=== PATIENT | female | born 1945 | race Caucasian/White ===

== ENCOUNTER → 2024-01-25 13:47 | Outpatient (REF) | payer MEDICARE, SELFPAY | LOC: WDC 13:47 | DX: Z12.31 Encounter for screening mammogram for malignant neoplasm of breast (principal) | CPT/HCPCS: 77063; 77067 ==

== ENCOUNTER → 2024-07-18 08:54 | Outpatient (REF) | payer MEDICARE, SELFPAY | LOC: RAD 08:54 | PROVIDERS: ATTENDING PHYSICIAN Internal Medicine Endocrinology, Diabetes & Metabolism; FAMILY PHYSICIAN Internal Medicine | DX: E21.0 Primary hyperparathyroidism (principal) | CPT/HCPCS: 76536; 78071; A9500 ==

== ENCOUNTER → 2024-08-26 11:27 | Outpatient (REF) | payer MEDICARE, SELFPAY | LOC: RAD 11:27 | PROVIDERS: ATTENDING PHYSICIAN Student in an Organized Health Care Education/Training Program; FAMILY PHYSICIAN Internal Medicine | DX: E07.9 Disorder of thyroid, unspecified (principal); M25.50 Pain in unspecified joint; M25.60 Stiffness of unspecified joint, not elsewhere classified; M35.3 Polymyalgia rheumatica; M54.50 Low back pain, unspecified; M79.641 Pain in right hand; N96 Recurrent pregnancy loss; R79.89 Other specified abnormal findings of blood chemistry; Z92.241 Personal history of systemic steroid therapy | CPT/HCPCS: 72110; 73120 ==